=== PATIENT | female | born 1985 | race Caucasian/White ===

== ENCOUNTER 2018-11-25 09:39 | Emergency (ER) | payer BC ==
[~2018-11-25] VITALS: Ht 162.6 cm; Wt 60.3 kg
[2018-11-25 09:40] VITALS: BP 118/82
[2018-11-25] MEDS ORDERED: WELLBUTRIN 75 M75 M1 PO (09:46)
[2018-11-25] MEDS ORDERED: NAPROSYN500 MG PO (11:43)
== END 2018-11-25 13:38 | disposition home or self-care (01) ==
LOC: ER 09:39
DX: S00.03XA Contusion of scalp, initial encounter (principal); F17.210 Nicotine dependence, cigarettes, uncomplicated; Z88.5 Allergy status to narcotic agent; Z90.49 Acquired absence of other specified parts of digestive tract; Z90.89 Acquired absence of other organs; V49.40XA Driver injured in collision with unspecified motor vehicles in traffic accident, initial encounter; Y93.89 Activity, other specified; Y92.89 Other specified places as the place of occurrence of the external cause; Y99.8 Other external cause status